=== PATIENT | female | born 1995 | race American Indian/Alaskan Native ===

== ENCOUNTER 2021-11-06 06:53 | Outpatient (CLI) | payer OTHER ==
--- NOTE | 2021-11-06 07:34 | Ultrasound Report ---
ULTRASOUND BREAST RIGHT LIMITED, 11/06/2021 CLINICAL INFORMATION / INDICATION: Decreasing right breast pain. History of left benign lumpectomy TECHNIQUE: Targeted ultrasound evaluation was performed of the area of interest. COMPARISON: None. FINDINGS: No abnormalities are seen in the area of complaint. IMPRESSION: No sonographic evidence of malignancy. Follow up recommendation: Clinical follow-up BI-RADS Category 1: NEGATIVE. A normal or "negative" report should not preclude biopsy or follow-up of a clinically suspicious find ing. Signer Name: Tye Whatley MD Signed: 11/06/2021 7:29 AM Workstation Name: [id number]
== END 2021-11-06 06:54 | disposition home or self-care (01) ==
LOC: US 06:53
PROVIDERS: ATTEND Obstetrics & Gynecology
DX: N64.4 Mastodynia (principal)